=== PATIENT | female | born 1985 | race African-American/Black ===

== ENCOUNTER 2021-07-30 08:41 | Emergency (ER) | payer MEDICAID ==
[~2021-07-30] VITALS: Ht 160 cm; Wt 107.0 kg
[2021-07-30 09:02] LABS: Basophils # (auto) 0 10 ^3/uL (0-0.2); Basophils % (auto) 0.5 % (0.0-2.0); Eosinophils # (auto) 0 10 ^3/uL (0-0.8); Eosinophils % (auto) 1.1 % (0.0-7.0); Hematocrit 37.2 % (36.0-46.0); Hemoglobin 12.4 g/dL (12.2-16.2); Lymphocytes # (auto) 1.4 10 ^3/uL (0.4-5.4); Lymphocytes % (auto) 34.1 % (10.0-50.0); Mean Corpuscular Hemoglobin 28.6 pg (28.0-32.0); Mean Corpuscular Hgb Conc. 33.3 g/dL (32.0-36.0); Mean Corpuscular Volume 86.1 fL (80.0-100.0); Monocytes # (auto) 0.4 10 ^3/uL (0-1.3); Monocytes % (auto) 9.9 % (0.0-12.0); Neutrophils # (auto) 2.2 10 ^3/uL (1.6-8.6); Neutrophils % (auto) 54.4 % (37.0-80.0); Red Blood Cells 4.32 10^6/uL (4.0-5.20); Red Cell Distribution Width 14.4 % (11.8-14.3); White Blood Cell 4.1 10^3/uL (4.4-10.8)
[2021-07-30 09:19] LABS: Anion Gap 6 (5-15); BUN/Creatinine Ratio 13.2; Blood Urea Nitrogen 10 mg/dL (7-18); Calcium 8.5 mg/dL (8.5-10.1); Carbon Dioxide 23 mmol/L (21-32); Chloride 111 mmol/L (98-107); GFR African American 111 mL/min; GFR Non-African American 92 mL/min; Glucose 91 mg/dL (74-106); Potassium 3.8 mmol/L (3.5-5.1); Sodium 140 mmol/L (136-145)
[2021-07-30 10:02] VITALS: BP 135/86
== END 2021-07-30 10:32 | disposition home or self-care (01) ==
LOC: ER 08:41
DX: R07.89 Other chest pain (principal); F41.9 Anxiety disorder, unspecified
CPT/HCPCS: 36415; 80048; 84443; 84484; 85025; 93005

== ENCOUNTER 2023-09-26 07:53 | Emergency (ER) | payer MEDICAID ==
[~2023-09-26] VITALS: Ht 160 cm; Wt 115.3 kg
[2023-09-26] MEDS ORDERED: ONDANSETRON ODT 4 MG TAB PO ONE (08:30)
[2023-09-26 09:00] LABS: Basophils # (auto) 0 10 ^3/uL (0-0.2); Basophils % (auto) 0.4 % (0.0-2.0); Eosinophils # (auto) 0 10 ^3/uL (0-0.8); Eosinophils % (auto) 0.9 % (0.0-7.0); Hematocrit 38.6 % (36.0-46.0); Hemoglobin 12.8 g/dL (12.2-16.2); Lymphocytes # (auto) 1.9 10 ^3/uL (0.4-5.4); Lymphocytes % (auto) 32.5 % (10.0-50.0); Mean Corpuscular Hemoglobin 28.8 pg (28.0-32.0); Mean Corpuscular Volume 87.3 fL (80.0-100.0); Monocytes # (auto) 0.5 10 ^3/uL (0-1.3); Monocytes % (auto) 9.2 % (0.0-12.0); Neutrophils # (auto) 3.3 10 ^3/uL (1.6-8.6); Nucleated Red Blood Cells % 0.2 %; Red Blood Cells 4.43 10^6/uL (4.0-5.20); Red Cell Distribution Width 13.8 % (11.8-14.3); White Blood Cell 5.8 10^3/uL (4.4-10.8)
[2023-09-26 09:16] LABS: Alanine Aminotransferase 13 U/L (7-40); Alkaline Phosphatase 57 U/L (46-116); Anion Gap 5 (5-15); Aspartate Aminotransferase 13 U/L (13-40); BUN/Creatinine Ratio 8.6 (10.0-20.0); Bilirubin, Total 0.7 mg/dL (0.2-1.0); Blood Urea Nitrogen 7 mg/dL (9-23); Calcium 8.7 mg/dL (8.7-10.4); Carbon Dioxide 26 mmol/L (20-30); Chloride 106 mmol/L (98-107); Glucose 85 mg/dL (74-106); Lipase 23 U/L (12-53); Potassium 4.1 mmol/L (3.5-5.1); Sodium 137 mmol/L (136-145); Total Protein 6.9 g/dL (5.7-8.2)
[2023-09-26 09:40] VITALS: BP 116/71; PULSE 70; RESP 16; TEMP 97.9; O2SAT 96
[2023-09-26 09:50] LABS: Urine Bacteria NONE SEEN /hpf (None Seen); Urine Blood Negative /uL (Negative); Urine Clarity Clear (Clear); Urine Color Colorless (Yellow); Urine Protein, UAD Negative (Negative); Urine Specific Gravity 1.009 (1.001-1.035); Urine Urobilinogen Normal (Negative); Urine WBC 1 /hpf (0 - 5)
== END 2023-09-26 11:35 | disposition left against medical advice (07) ==
LOC: ER 07:53
DX: R10.12 Left upper quadrant pain (principal); R10.2 Pelvic and perineal pain; F41.9 Anxiety disorder, unspecified; Z98.890 Other specified postprocedural states
CPT/HCPCS: 36415; 80053; 81001; 83690; 84702; 85025; 99283; Q0162

== ENCOUNTER 2024-10-12 14:49 | Inpatient (IN) | payer MEDICAID ==
[~2024-10-12] VITALS: Ht 161.3 cm; Wt 118.5 kg
[2024-10-12 15:30] VITALS: PULSE 18; RESP 18; O2SAT 99
[2024-10-12] MEDS: SODIUM CHLORIDE 0.9% 1,000 ML IV ONE (15:45)
--- NOTE | 2024-10-12 16:01 | ED.PDOC ---
History of Present Illness HPI Comments 39F BIBA w/ prior Hx of an ectopic which may be associated to the c/c of ABD pain. EMS report on picking up the pt at a restaurant w/ the pt having ABD pain which feel like a "cramping sensation but worse," greatest in the upper abdomen, but diffusely painful. Pt reports on having an acute onset of ABD pain with the same sensation as her ectopic . Pt notes that she just ended her menstruation cycle yesterday. Denies chills, fever, V/D, SOB, CP or other associated symptoms, modifiers, or recent injuries at this time. Chief Complaint: Abdominal Pain Time Seen by MD: 15:30 Primary Care Provider: Alina Cat Notes: Nurses Notes, Adjunct Professor Of [employer] History Notes, Medications, Allergies Allergies: Coded Allergies: NO KNOWN ALLERGIES (Unverified , 07/30/21) Information Source: Patient, Emergency Med Personnel, Significant Other Mode of Arrival: EMS Severity: Moderate Timing: Minutes Duration: Since onset, Minutes Prehospital treatment: None Past Medical History Surgical History (Other): ? Left salpingectomy/oophorectomy [employer] History: Ectopic Family History Family History: Reviewed,noncontributory to illness, Unknown Social History Smoker: Unknown Alcohol: Unknown Drugs: Unknown Lives In: Home Constitutional: denies: chills, diaphoresis, fatigue, fever, malaise, sweats, weakness, others EENTM: denies: blurred vision, double vision, ear bleeding, ear discharge, ear drainage, ear pain, ear ringing, eye pain, eye redness, hearing loss, mouth pain, mouth swelling, nasal discharge, nose bleeding, nose congestion, nose pain, photophobia, tearing, throat pain, throat swelling, voice changes, others Respiratory: denies: cough, hemoptysis, orthopnea, SOB at rest, shortness of breath, SOB with excertion, stridor, wheezing, others Cardiovascular: denies: chest pain, dizzy spells, diaphoresis, Dyspnea on exertion, edema, irregular heart beat, left arm pain, lightheadedness, palpitations, PND, syncope, others Gastrointestinal: reports: abdominal pain; denies: abdomen distended, blood streaked bowels, constipated, diarrhea, dysphagia, difficulty swallowing, hematemesis, melena, nausea, poor appetite, poor fluid intake, rectal bleeding, rectal pain, vomiting, others Genitourinary: denies: abnormal vagina bleeding, burning, dyspareunia, dysuria, flank pain, frequency, hematuria, incontinence, pain, , vagina discharge, urgency, others Neurological: denies: dizziness, fainting, headache, left sided numbness, left sided weakness, numbness, paresthesia, pre-existing deficit, right sided numbness, right sided weakness, seizure, speech problems, tingling, tremors, weakness, others Musculoskeletal: denies: back pain, gout, joint pain, joint swelling, muscle pain, muscle stiffness, neck pain, others Integumetry: denies: bruises, change in color, change in hair/nails, dryness, laceration, lesions, lumps, rash, wounds, others Allergic/Immunocompromised: denies: Difficulty Healing, Frequent Infections, Hives, Itching, others Hematologic/Lymphatic: denies: anemia, blood clots, easy bleeding, easy bruising, swollen glands, others Endocrine: denies: excessive hunger, excessive sweating, excessive thirst, excessive urination, flushing, intolerance to cold, intolerance to heat, unexplained weight gain, unexplained weight loss, others Psychiatric: denies: anxiety, bipolar disorder, depression, hopeless, panic disorder, schizophrenia, sleepless, suicidal, others All Other Systems: Reviewed and Negative Physical Exam General Appearance: Moderate Distress, Obese HEENT: PERRL/EOMI Neck: Full Range of Motion, Normal Inspection Respiratory: Lungs Clear, No Accessory Muscle Use, No Respiratory Distress, Normal Breath Sounds Cardiovascular: No Edema, No JVD, Regular Rate/Rhythm Breast Exam: Deferred Gastrointestinal: Soft, Tenderness (Diffusely tender to percussion and palpation, greatest in the upper abdominal area. No rebound. Positive voluntary guarding.) Genitalia: Deferred Pelvic: Deferred Rectal: Deferred Extremities: Normal inspection, Normal range of motion, Non-tender, No pedal edema Neurologic: Alert (Oriented x4), Normal Affect, Normal Mood, Other (Moves all extremities. No gross focal deficit.) Cerebellar Function: NOT DONE Reflexes: NOT DONE Skin: Dry, Normal Color, Warm Lymphatic: NOT DONE Was a procedure done? Was a procedure done?: No Differential Dx Considerations may include: Gastroenteritis, gastritis, pancreatitis, bowel obstruction, , ectopic , ruptured ovarian cyst, diverticular disease, among others X-Ray, Labs, Meds, VS Vital Signs Date Time Temp Pulse Resp B/P (MAP) Pulse Ox O2 Delivery O2 Flow Rate FiO2 10/12/24 18:00 50 18 104/40 10/12/24 17:19 98.7 110 24 124/77 (93) 99 10/12/24 16:44 57 16 112/61 10/12/24 16:18 72 16 112/61 10/12/24 16:00 62 18 112/61 (78) 99 10/12/24 15:30 18 18 99 Room Air* 0 21 10/12/24 15:30 62 14 106/48 (67) 99 Lab Test 10/12/24 15:41 Range/Units White Blood Count 4.4 4.4-10.8 10^3/uL Red Blood Count 4.23 4.0-5.20 10^6/uL Hemoglobin 12.4 12.2-16.2 g/dL Hematocrit 37.0 36.0-46.0 % Mean Corpuscular Volume 87.7 80.0-100.0 fL Mean Corpuscular Hemoglobin 29.3 28.0-32.0 pg Mean Corpuscular Hemoglobin Concent 33.4 32.0-36.0 g/dL Red Cell Distribution Width 13.9 11.8-14.3 % Platelet Count 271 140-450 10^3/uL Mean Platelet Volume 7.7 6.9-10.8 fL Neutrophils (%) (Auto) 63.9 37.0-80.0 % Lymphocytes (%) (Auto) 26.9 10.0-50.0 % Monocytes (%) (Auto) 8.0 0.0-12.0 % Eosinophils (%) (Auto) 0.8 0.0-7.0 % Basophils (%) (Auto) 0.4 0.0-2.0 % Neutrophils # (Auto) 2.8 1.6-8.6 10 ^3/uL Lymphocytes # (Auto) 1.2 0.4-5.4 10 ^3/uL Monocytes # (Auto) 0.4 0-1.3 10 ^3/uL Eosinophils # (Auto) 0 0-0.8 10 ^3/uL Basophils # (Auto) 0 0-0.2 10 ^3/uL Nucleated Red Blood Cells 0.0 % Sodium Level 141 136-145 mmol/L Potassium Level 3.9 3.5-5.1 mmol/L Chloride Level 107 98-107 mmol/L Carbon Dioxide Level 26 20-31 mmol/L Anion Gap 8 5-15 Blood Urea Nitrogen 9 9-23 mg/dL Creatinine 0.88 0.550-1.02 mg/dL Glomerular Filtration Rate Calc 86 >90 mL/min BUN/Creatinine Ratio 10.2 10.0-20.0 Serum Glucose 82 74-106 mg/dL Calcium Level 9.2 8.7-10.4 mg/dL Total Bilirubin 0.4 0.2-1.0 mg/dL Aspartate Amino Transferase (AST) 26 13-40 U/L Alanine Aminotransferase (ALT) 18 7-40 U/L Alkaline Phosphatase 62 46-116 U/L Total Protein 6.5 5.7-8.2 g/dL Albumin 3.7 3.2-4.8 g/dL Lipase 158 H 12-53 U/L Beta HCG, Quantitative 1.7 1.5-4.2 mIU/mL Current Medications Medications (Trade) Dose Ordered Sig/Ana Luisa Route Start Time Stop Time Status Last Admin Morphine Sulfate 4 mg ONCE ONCE IV 10/12/24 15:45 10/12/24 15:46 DC 10/12/24 16:18 Ondansetron HCl (Zofran) 4 mg ONCE ONCE IV 10/12/24 15:45 10/12/24 15:46 DC 10/12/24 16:17 Sodium Chloride 1,000 ml @ 1,000 mls/hr Q1H ONCE IV 10/12/24 15:45 10/12/24 16:44 DC 10/12/24 15:45 Morphine Sulfate 4 mg ONCE ONCE IV 10/12/24 17:45 10/12/24 17:46 DC 10/12/24 18:00 PROCEDURE(s): PELUS - PELVIC REASON: pelvic pain, h/o ruptured ectopic ORDER NUMBER(s): [id number], ACCESSION NUMBER(s): [id number] INDICATION: pelvic pain, h/o ruptured ectopic TECHNIQUE: Multiple real-time grayscale transabdominal sonographic images along with color and duplex Doppler of the uterus and ovaries were obtained. COMPARISON: None FINDINGS: The uterus measures 8.6 x 2.3 x 3.1 cm cm. The endometrial stripe measures 0.31 cm. The right ovary measures 2.6 x 2.3 x 1.5 cm. There is an anechoic mass in the right ovary measuring 0.9 x 0.9 x 0.8 cm most likely a small follicle. The left ovary not visualized Subsequent color and duplex Doppler interrogation of the ovaries demonstrated symmetric vascular flow to both ovaries, though this does not exclude the possibility of torsion due to the dual blood supply. IMPRESSION: 1. Uterus is unremarkable. 2. Small follicle right ovary. 3. Left ovary not visualized EDURE(s): ABPL - CT AB PEL WO CON-NO ORAL OR IV REASON: diffuse abd pain ORDER NUMBER(s): [id number], ACCESSION NUMBER(s): [id number] Exam: CT CT AB PEL WO CON-NO ORAL OR IV History: diffuse abd pain Comparison Study: None available at time of dictation. TECHNIQUE: Multidetector CT of the abdomen was performed from lung bases to pubic symphysis. Imaging was performed without IV contrast. Axial, coronal and sagittal multiplanar reformats were obtained from the axial data set by the technologist. Radiation Dose Information: CT Dose: CTDI volume is 22.66 mGy. Dose-length product is 1156.64 mGy*cm FINDINGS: Evaluation of solid organs is limited due to lack of intravenous contrast use. Findings: Lung Bases: No acute or significant lung base finding. Normal heart size. No pleural or pericardial effusion. Liver: The liver is normal in size. No focal lesions. Gallbladder and Biliary Tree: No calcified gallstones Spleen: Unremarkable Pancreas: The pancreas is grossly normal in appearance. Adrenal Glands: Unremarkable Kidneys: Kidneys are grossly normal without calculi or hydronephrosis. Bladder: Grossly unremarkable for degree of distention. Bowel: The stomach is grossly normal in appearance. Small bowel and colon are normal in caliber and distribution. The appendix is not visualized; however, no secondary findings of acute appendicitis identified. Ascites: Absent Lymphadenopathy: No mesenteric, retroperitoneal or periportal lymphadenopathy. Abdominal Wall and Mesentery: Unremarkable. Vasculature: The visualized abdominal aorta is normal in size and caliber. Evaluation of abdominal and pelvic vessels is limited due to lack of intravenous contrast. Pelvic Organs: Unremarkable Musculoskeletal: No aggressive focal bony lesions, acute fractures or dislocation. Soft tissues: Unremarkable IMPRESSION: 1. No calcified gallstones. 2. No nephrolithiasis or hydronephrosis. 3. No findings of bowel obstruction. Radiation optimization: All CT scans at this facility use at least one of these dose optimization techniques: automated exposure control mA and/or kV adjustment per patient size (includes targeted exams where dose is matched to clinical indication) or iterative reconstruction. X-Ray, Labs, Meds, VS Comment 39-year-old female with a history of previous ectopic status post left oophorectomy/salpingectomy complaining of abdominal pain and nausea Vitals remarkable for respiratory rate 18, BP 106/48 Exam remarkable for diffuse abdominal tenderness, greatest in the upper abdomen Rhythm strip independently interpreted by me: Sinus rhythm, rate 62, no ectopy. Pelvic ultrasound: IMPRESSION: 1. Uterus is unremarkable. 2. Small follicle right ovary. 3. Left ovary not visualized CT abdomen and pelvis: IMPRESSION: 1. No calcified gallstones. 2. No nephrolithiasis or hydronephrosis. 3. No findings of bowel obstruction. CBC, CMP, hCG unremarkable Lipase 158 Patient treated with the following in the ED: 1 L 0.9 normal saline IV bolus, morphine 4 mg IV x2, Zofran 4 mg IV On re-evaluation, patient states pain has somewhat improved, but is still present. Vitals are stable. Plan is to admit the patient for pain control and GI evaluation. Time of 1ST Reevaluation: 16:00 Reevaluation 1ST: Unchanged Time of 2ND Reevaluation: 18:25 Reevaluation 2ND: Improved Patient Education/Counseling: Diagnosis, Treatment, Prognosis Family Education/Counseling: Diagnosis, Treatment, Prognosis Additional Information The following tests were ordered, and results were reviewed by me: Lab, PHA, US, CT Additional information was gathered from interviewing the following independent historians: Fam, EMT) I reviewed and agreed with the following test results read by other providers: CT, US) I discussed treatments and results with medical personnel and: (Consultants, Fam, etc) Departure 1 Departure Time of Disposition: 17:51 Impression: Primary Impression: Acute pancreatitis Qualified Codes: K85.90 - Acute pancreatitis without necrosis or infection, unspecified Disposition: 09 ADMITTED INPATIENT Admit to: Med Surg Condition: Fair Critical Care Note Critical Care Time?: No Stability Stability form required: No Heart Score Heart Score: Heart Score Response (Comments) Value History N/A 0 EKG N/A 0 Age N/A 0 Risk Factors N/A 0 Troponin N/A 0 Total 0 I personally scribed for NAT BANUELOS MD ([email or web address]) on 10/12/24 at 16:01. Electronically submitted by Rony Solorio ([email or web address]). NAT BANUELOS MD Oct 12, 2024 16:01
[2024-10-12 16:14] LABS: Basophils # (auto) 0 10 ^3/uL (0-0.2); Basophils % (auto) 0.4 % (0.0-2.0); Eosinophils # (auto) 0 10 ^3/uL (0-0.8); Eosinophils % (auto) 0.8 % (0.0-7.0); Hemoglobin 12.4 g/dL (12.2-16.2); Lymphocytes # (auto) 1.2 10 ^3/uL (0.4-5.4); Lymphocytes % (auto) 26.9 % (10.0-50.0); Mean Corpuscular Hemoglobin 29.3 pg (28.0-32.0); Mean Corpuscular Hgb Conc. 33.4 g/dL (32.0-36.0); Mean Corpuscular Volume 87.7 fL (80.0-100.0); Monocytes # (auto) 0.4 10 ^3/uL (0-1.3); Neutrophils # (auto) 2.8 10 ^3/uL (1.6-8.6); Neutrophils % (auto) 63.9 % (37.0-80.0); Platelet Count (auto) 271 10^3/uL (140-450); Red Blood Cells 4.23 10^6/uL (4.0-5.20); Red Cell Distribution Width 13.9 % (11.8-14.3); White Blood Cell 4.4 10^3/uL (4.4-10.8)
[2024-10-12] MEDS: ONDANSETRON HCL 4 MG/2 ML VIAL IV ONE (16:17)
[2024-10-12] MEDS: MORPHINE SULFATE 4 MG/ML SYR/VIAL IV ONE ×2 (16:18→18:00)
[2024-10-12 16:22] LABS: Alanine Aminotransferase 18 U/L (7-40); Albumin 3.7 g/dL (3.2-4.8); Alkaline Phosphatase 62 U/L (46-116); Anion Gap 8 (5-15); Aspartate Aminotransferase 26 U/L (13-40); BUN/Creatinine Ratio 10.2 (10.0-20.0); Bilirubin, Total 0.4 mg/dL (0.2-1.0); Blood Urea Nitrogen 9 mg/dL (9-23); Calcium 9.2 mg/dL (8.7-10.4); Carbon Dioxide 26 mmol/L (20-31); Glucose 82 mg/dL (74-106); Potassium 3.9 mmol/L (3.5-5.1); Sodium 141 mmol/L (136-145); Total Protein 6.5 g/dL (5.7-8.2)
[2024-10-12 16:27] LABS: Chloride 107 mmol/L (98-107)
[2024-10-12 16:48] LABS: Lipase 158 U/L (12-53)
--- NOTE | 2024-10-12 17:36 | DVH ---
INDICATION: pelvic pain, h/o ruptured ectopic TECHNIQUE: Multiple real-time grayscale transabdominal sonographic images along with color and duplex Doppler of the uterus and ovaries were obtained. COMPARISON: None FINDINGS: The uterus measures 8.6 x 2.3 x 3.1 cm cm. The endometrial stripe measures 0.31 cm. The right ovary measures 2.6 x 2.3 x 1.5 cm. There is an anechoic mass in the right ovary measuring 0.9 x 0.9 x 0.8 cm most likely a small follicle. The left ovary not visualized Subsequent color and duplex Doppler interrogation of the ovaries demonstrated symmetric vascular flow to both ovaries, though this does not exclude the possibility of torsion due to the dual blood suppl y. IMPRESSION: 1. Uterus is unremarkable. 2. Small follicle right ovary. 3. Left ovary not visualized
--- NOTE | 2024-10-12 18:04 | DVH ---
Exam: CT CT AB PEL WO CON-NO ORAL OR IV History: diffuse abd pain Comparison Study: None available at time of dictation. TECHNIQUE: Multidetector CT of the abdomen was performed from lung bases to pubic symphysis. Imaging was performed without IV contrast. Axial, coronal and sagittal multiplanar reformats were obtained fr om the axial data set by the technologist. Radiation Dose Information: CT Dose: CTDI volume is 22.66 mGy. Dose-length product is 1156.64 mGy*cm FINDINGS: Evaluation of solid organs is limited due to lack of intravenous contrast use. Findings: Lung Bases: No acute or significant lung base finding. Normal heart size. No pleural or pericardial effusion. Liver: The liver is normal in size. No focal lesions. Gallbladder and Biliary Tree: No calcified gallstones Spleen: Unremarkable Pancreas: The pancreas is grossly normal in appearance. Adrenal Glands: Unremarkable Kidneys: Kidneys are grossly normal without calculi or hydronephrosis. Bladder: Grossly unremarkable for degree of distention. Bowel: The stomach is grossly normal in appearance. Small bowel and colon are normal in caliber and d istribution. The appendix is not visualized; however, no secondary findings of acute appendicitis id entified. Ascites: Absent Lymphadenopathy: No mesenteric, retroperitoneal or periportal lymphadenopathy. Abdominal Wall and Mesentery: Unremarkable. Vasculature: The visualized abdominal aorta is normal in size and caliber. Evaluation of abdominal a nd pelvic vessels is limited due to lack of intravenous contrast. Pelvic Organs: Unremarkable Musculoskeletal: No aggressive focal bony lesions, acute fractures or dislocation. Soft tissues: Unremarkable IMPRESSION: 1. No calcified gallstones. 2. No nephrolithiasis or hydronephrosis. 3. No findings of bowel obstruction. Radiation optimization: All CT scans at this facility use at least one of these dose optimization vitor hniques: automated exposure control mA and/or kV adjustment per patient size (includes targeted exam s where dose is matched to clinical indication) or iterative reconstruction.
[2024-10-12 19:30] VITALS: PULSE 75; RESP 16; O2SAT 99
[2024-10-12] MEDS ORDERED: ACETAMINOPHEN 325 MG TAB PO PRN (19:30)
[2024-10-12] MEDS ORDERED: ONDANSETRON HCL 4 MG/2 ML VIAL IV PRN (19:30)
[2024-10-12] MEDS: LACTATED RINGER'S 1,000 ML IV SCH (20:06)
[2024-10-12] MEDS ORDERED: NITROGLYCERIN 0.4 MG SL TAB SL PRN (21:45)
[2024-10-12] MEDS ORDERED: MORPHINE SULFATE INJ 2 MG/ml SYRG IV PRN (21:45)
--- NOTE | 2024-10-12 21:56 | DVHHP2 ---
History of Present Illness Reason for Visit: Acute pancreatitis History of Present Illness The patient is a 39-year-old female with past medical history of atopic who presented to [facility] ED with complaint of acute abdominal pain. Patient reports she was picked up at restaurant having abdominal pain cramping sensation in nature greater in the upper abdominal region, rating 9/10 numeric scale, getting worse that prompted this visit. Patient states that she just ended her menstruation cycle yesterday. Patient was seen evaluated in the ED, laboratory data shows WBC 4.4, platelets 271, sodium 141, potassium 3.9, BUN 9, creatinine 0.88, glucose 82, lipase 158. Abdomen/pelvis CT shows no evidence of acute abdominal/pelvis abnormality. Patient was given IV morphine sulfate 4 mg, given IV fluid normal saline, please see medication orders section in the computer. On my assessment, patient denied chest pain, no dizziness, no headache, no diaphoresis, no shortness o breath, no diarrhea, no nausea, no vomiting, no fever, no chills. Patient was admitted for further evaluation and medical management. Past Medical History Ectopic Past Surgical History Left salpingectomy/oophorectomy Family History Reviewed, noncontributory to the management of this case. Past Social History The patient lives at home, denies smoking, alcohol or illicit drugs abuse. Review of Systems Constitutional: No: Fever, Chills, Sweats, Weakness, Malaise, Other Eyes: No: Pain, Vision change, Conjunctivae inflammation, Eyelid inflammation, Other, Redness ENT: No: Ear pain, Ear discharge, Nose pain, Nose discharge, Nose congestion, Mouth pain, Mouth swelling, Throat pain, Throat swelling, Other Respiratory: No: Cough, Dry, Shortness of breath, SOB with excertion, Wheezing, Hemoptysis, Pleuritic Pain, Sputum, Wheezing, Other Cardiovascular: No: Chest Pain, Palpitations, Orthopnea, Paroxysmal Noc. Dyspnea, Edema, Lt Headedness, Other Gastrointestinal: Abdominal Pain; No: Nausea, Vomiting, Diarrhea, Constipation, Melena, Hematochezia, Other Genitourinary: No Dysuria, No Frequency, No Incontinence, No Hematuria, No Retention, No Other Musculoskeletal: No: other, neck pain, shoulder pain, arm pain, back pain, hand pain, leg pain, foot pain Skin: No: Rash, Lesions, Jaundice, Bruising, Other Neurological: No: Weakness, Numbness, Incoordination, Change in speech, Confusion, Seizures, Other Allergies: Coded Allergies: NO KNOWN ALLERGIES (Unverified , 07/30/21) Medications Current Medications Medications Dose Ordered Sig/Ana Luisa Route Start Time Stop Time Status Last Admin Dose Admin Lactated Ringer's 1,000 ml @ 100 mls/hr Q10H IV 10/12/24 19:30 10/12/24 20:06 100 MLS/HR Acetaminophen/ Hydrocodone Bitart 1 tab Q4HP PRN PO 10/12/24 19:30 Ondansetron HCl 4 mg Q4HP PRN IV 10/12/24 19:30 Docusate Sodium 100 mg BIDPRN PRN PO 10/12/24 19:30 Acetaminophen 650 mg Q6HP PRN PO 10/12/24 19:30 Morphine Sulfate 2 mg Q4HPRN PRN IV 10/12/24 19:30 Exam Vital Signs Vital Signs Date Time Temp Pulse Resp B/P (MAP) Pulse Ox O2 Delivery O2 Flow Rate FiO2 10/12/24 20:00 62 10/12/24 18:26 18 104/40 10/12/24 18:00 97 10/12/24 17:19 98.7 10/12/24 15:30 Room Air* 0 21 General Appearance: Alert, Oriented X3, Cooperative, No acute distress HEENT: Atraumatic, PERRLA, EOMI, Mucous membr. moist/pink Respiratory: Clear to auscultation, Normal air movement Cardiovascular: Regular rate, Normal S1, Normal S2, No murmurs Abdominal: Normal bowel sounds, Soft, No hepatospenomegaly, No masses, Other (Reports tenderness) Extremities: No clubbing, No cyanosis, No edema, Normal pulses, No tenderness/swelling Skin: No rashes, No breakdown, No significant lesion Neuro: Normal gait, Normal speech, Strength at 5/5 X4 ext, Normal tone, Sensation intact, Cranial nerves 3-12 NL, Reflexes 2+ Psych/Mental Status: Mental status NL, Mood NL Labs/Xrays Labs Test 10/12/24 15:41 Range/Units White Blood Count 4.4 4.4-10.8 10^3/uL Red Blood Count 4.23 4.0-5.20 10^6/uL Hemoglobin 12.4 12.2-16.2 g/dL Hematocrit 37.0 36.0-46.0 % Mean Corpuscular Volume 87.7 80.0-100.0 fL Mean Corpuscular Hemoglobin 29.3 28.0-32.0 pg Mean Corpuscular Hemoglobin Concent 33.4 32.0-36.0 g/dL Red Cell Distribution Width 13.9 11.8-14.3 % Platelet Count 271 140-450 10^3/uL Mean Platelet Volume 7.7 6.9-10.8 fL Neutrophils (%) (Auto) 63.9 37.0-80.0 % Lymphocytes (%) (Auto) 26.9 10.0-50.0 % Monocytes (%) (Auto) 8.0 0.0-12.0 % Eosinophils (%) (Auto) 0.8 0.0-7.0 % Basophils (%) (Auto) 0.4 0.0-2.0 % Neutrophils # (Auto) 2.8 1.6-8.6 10 ^3/uL Lymphocytes # (Auto) 1.2 0.4-5.4 10 ^3/uL Monocytes # (Auto) 0.4 0-1.3 10 ^3/uL Eosinophils # (Auto) 0 0-0.8 10 ^3/uL Basophils # (Auto) 0 0-0.2 10 ^3/uL Nucleated Red Blood Cells 0.0 % Sodium Level 141 136-145 mmol/L Potassium Level 3.9 3.5-5.1 mmol/L Chloride Level 107 98-107 mmol/L Carbon Dioxide Level 26 20-31 mmol/L Anion Gap 8 5-15 Blood Urea Nitrogen 9 9-23 mg/dL Creatinine 0.88 0.550-1.02 mg/dL Glomerular Filtration Rate Calc 86 >90 mL/min BUN/Creatinine Ratio 10.2 10.0-20.0 Serum Glucose 82 74-106 mg/dL Calcium Level 9.2 8.7-10.4 mg/dL Total Bilirubin 0.4 0.2-1.0 mg/dL Aspartate Amino Transferase (AST) 26 13-40 U/L Alanine Aminotransferase (ALT) 18 7-40 U/L Alkaline Phosphatase 62 46-116 U/L Total Protein 6.5 5.7-8.2 g/dL Albumin 3.7 3.2-4.8 g/dL Lipase 158 H 12-53 U/L Beta HCG, Quantitative 1.7 1.5-4.2 mIU/mL PATIENT: TEENA SMITH ACCT: [id number] UNIT: [id number] : 1985 LOC: ER ROOM / BED: / AGE / SEX: 39 / F ADM STATUS: REG ER SERVICE 1538 ORDERING PHYSICIAN: NAT BANUELOS MD PROCEDURE(s): ABPL - CT AB PEL WO CON-NO ORAL OR IV REASON: diffuse abd pain ORDER NUMBER(s): [id number], ACCESSION NUMBER(s): [id number] Exam: CT CT AB PEL WO CON-NO ORAL OR IV History: diffuse abd pain Comparison Study: None available at time of dictation. TECHNIQUE: Multidetector CT of the abdomen was performed from lung bases to pubic symphysis. Imaging was performed without IV contrast. Axial, coronal and sagittal multiplanar reformats were obtained from the axial data set by the technologist. Radiation Dose Information: CT Dose: CTDI volume is 22.66 mGy. Dose-length product is 1156.64 mGy*cm FINDINGS: Evaluation of solid organs is limited due to lack of intravenous contrast use. Findings: Lung Bases: No acute or significant lung base finding. Normal heart size. No p leural or pericardial effusion. Liver: The liver is normal in size. No focal lesions. Gallbladder and Biliary Tree: No calcified gallstones Spleen: Unremarkable Pancreas: The pancreas is grossly normal in appearance. Adrenal Glands: Unremarkable Kidneys: Kidneys are grossly normal without calculi or hydronephrosis. Bladder: Grossly unremarkable for degree of distention. Bowel: The stomach is grossly normal in appearance. Small bowel and colon are normal in caliber and distribution. The appendix is not visualized; however, no secondary findings of acute appendicitis identified. Ascites: Absent Lymphadenopathy: No mesenteric, retroperitoneal or periportal lymphadenopathy. Abdominal Wall and Mesentery: Unremarkable. Vasculature: The visualized abdominal aorta is normal in size and caliber. Evaluation of abdominal and pelvic vessels is limited due to lack of intravenous contrast. Pelvic Organs: Unremarkable Musculoskeletal: No aggressive focal bony lesions, acute fractures or dislocation. Soft tissues: Unremarkable IMPRESSION: 1. No calcified gallstones. 2. No nephrolithiasis or hydronephrosis. 3. No findings of bowel obstruction. ORDERING PHYSICIAN: NAT BANUELOS MD PROCEDURE(s): PELUS - PELVIC REASON: pelvic pain, h/o ruptured ectopic ORDER NUMBER(s): [id number], ACCESSION NUMBER(s): [id number] INDICATION: pelvic pain, h/o ruptured ectopic TECHNIQUE: Multiple real-time grayscale transabdominal sonographic images along with color and duplex Doppler of the uterus and ovaries were obtained. COMPARISON: None FINDINGS: The uterus measures 8.6 x 2.3 x 3.1 cm cm. The endometrial stripe measures 0.31 cm. The right ovary measures 2.6 x 2.3 x 1.5 cm. There is an anechoic mass in the right ovary measuring 0.9 x 0.9 x 0.8 cm most likely a small follicle. The left ovary not visualized Subsequent color and duplex Doppler interrogation of the ovaries demonstrated symmetric vascular flow to both ovaries, though this does not exclude the possib ility of torsion due to the dual blood supply. IMPRESSION: 1. Uterus is unremarkable. 2. Small follicle right ovary. 3. Left ovary not visualized Assessment/Plan Assessment/Plan Acute pancreatitis Acute abdominal pain Acute pancreatitis without necrosis or infection, unspecified Plan 1. Admit to MedSurg unit 2. Breathing treatment 3. Pain control management 4. Management of fluids and electrolytes 5. Consultation for hospitalist 6. Diagnostic tests abdomen/pelvis CT 7. DVT prophylaxis-on SCDs 8. Repeat labs CBC, CMP in a.m. 9. Continue with current medical management 10. Treatment plan discussed with patient and RN. Patient verbalized understanding. Plan discussed with: Patient, Other (RN) My Orders Orders - EARNEST VIRAMONTES DNP Procedure Category Date Status Time Lactated Ringer's PHA 10/12/24 In Process 19:30 Allergies GLENN 10/12/24 In Process 19:17 Code Status CODE 10/12/24 Transmitted 19:17 Oxygen Per Hour RT 10/12/24 Transmitted 19:17 Hydrocodone-Acet PHA 10/12/24 In Process 5/325mg Tab ([place] 19:30 Ondansetron Hcl PHA 10/12/24 In Process (Zofran) 19:30 Docusate Sodium PHA 10/12/24 In Process Capsule (Colace 19:30 Complete Blood Count LAB 10/13/24 Verified 04:00 Comprehensive LAB 10/13/24 Verified Metabolic Panel 04:00 Condition: Serious GLENN 10/12/24 In Process 19:17 Acetaminophen Tablet PHA 10/12/24 In Process (Tylenol Tablet) 19:30 Clear Liq Diet DIET 10/13/24 Transmitted Breakfast Bedrest With Bathroom GLENN 10/12/24 In Process Privileg 19:17 Morphine Sulfate PHA 10/12/24 In Process Injection 19:30 Sequential GLENN 10/12/24 In Process Compression Device * Gi [employer] Inspector CONS 10/12/24 Transmitted 19:21 Admit ADMIT 10/12/24 Verified 21:44 Nitroglycerin [facility] 10/12/24 Verified Sublingual (Ntrostat 21:45 Morphine Sulfate PHA 10/12/24 Verified Injection 21:45 Notify Md Of Changes [facility] 10/12/24 Verified From Base 21:44 Emergency Dysrhythmia [facility] 10/12/24 Verified Protocol 21:44 Oxygen By Nasal RT 10/12/24 Verified Cannula 21:44 Problem List: (1) Acute pancreatitis (2) Acute abdominal pain (3) Acute pancreatitis without necrosis or infection, unspecified Date of Service: Oct 12, 2024 Billing Provider: EARNEST VIRAMONTES DNP Common Visit Codes: [id number] INP/OBS CARE (HIGH) EARNEST VIRAMONTES DNP Oct 12, 2024 21:56
[2024-10-12] MEDS: HYDROcodone-ACET 5/325MG TAB PO PRN (22:19)
[2024-10-12] MEDS: D5W/SOD CHL 0.45% 1,000 ML IV SCH (23:27)
[2024-10-13] VITALS (7 sets, daily range): BP systolic 103–118; BP diastolic 52–61; PULSE 54–63; RESP 16–19; TEMP 97.6–97.9; O2SAT 97–100
[2024-10-13 00:04] LABS: Urine Bacteria FEW /hpf (None Seen); Urine Blood Negative /uL (Negative); Urine Clarity Turbid (Clear); Urine Color Light-Yellow (Yellow); Urine Mucus FEW (None Seen); Urine Protein, UAD Negative (Negative); Urine Specific Gravity 1.015 (1.001-1.035); Urine Urobilinogen Normal (Negative); Urine WBC 3 /hpf (0 - 5)
[2024-10-13] MEDS: MORPHINE SULFATE INJ 2 MG/ml SYRG IV PRN (01:07)
[2024-10-13] MEDS ORDERED: LORA-1121 PO (03:25)
[2024-10-13] MEDS ORDERED: DIPH25CA66 PO (03:25)
[2024-10-13 05:53] LABS: Basophils # (auto) 0 10 ^3/uL (0-0.2); Basophils % (auto) 0.3 % (0.0-2.0); Eosinophils # (auto) 0 10 ^3/uL (0-0.8); Eosinophils % (auto) 0.7 % (0.0-7.0); Hematocrit 34.8 % (36.0-46.0); Hemoglobin 11.8 g/dL (12.2-16.2); Lymphocytes # (auto) 1.4 10 ^3/uL (0.4-5.4); Lymphocytes % (auto) 28.8 % (10.0-50.0); Mean Corpuscular Hemoglobin 29.7 pg (28.0-32.0); Mean Corpuscular Hgb Conc. 33.9 g/dL (32.0-36.0); Mean Corpuscular Volume 87.6 fL (80.0-100.0); Monocytes # (auto) 0.5 10 ^3/uL (0-1.3); Monocytes % (auto) 9.7 % (0.0-12.0); Neutrophils % (auto) 60.5 % (37.0-80.0); Nucleated Red Blood Cells % 0.1 %; Platelet Count (auto) 249 10^3/uL (140-450); Red Blood Cells 3.97 10^6/uL (4.0-5.20); Red Cell Distribution Width 13.7 % (11.8-14.3); White Blood Cell 4.9 10^3/uL (4.4-10.8)
[2024-10-13 06:15] LABS: Albumin 3.4 g/dL (3.2-4.8); Alkaline Phosphatase 71 U/L (46-116); Anion Gap 5 (5-15); Bilirubin, Total 0.6 mg/dL (0.2-1.0); Calcium 8.9 mg/dL (8.7-10.4); Carbon Dioxide 28 mmol/L (20-31); Chloride 107 mmol/L (98-107); Glucose 99 mg/dL (74-106); Potassium 3.6 mmol/L (3.5-5.1); Sodium 140 mmol/L (136-145)
[2024-10-13 06:18] LABS: Alanine Aminotransferase 121 U/L (7-40); Aspartate Aminotransferase 214 U/L (13-40); Blood Urea Nitrogen 6 mg/dL (9-23)
--- NOTE | 2024-10-13 13:09 | DVHPN2 ---
Subjective The patient is seen and examined at bedside. The patient stated that she unable to tolerate clear liquid diet. She just tried the broth and feel like she wanted to vomiting. Reviewed: Care Plan, H&P, Labs, Medications, Previous Orders, Radiology Changes from previous H/P or p: No Changes Eyes: No Pain, No Vision change, No Conjunctivae inflammation, No Eyelid inflammation, No Other, No Redness ENT: No Ear pain, No Ear discharge, No Nose pain, No Nose discharge, No Nose congestion, No Mouth pain, No Mouth swelling, No Throat pain, No Throat swelling, No Other Cardiovascular: No Chest Pain, No Palpitations, No Orthopnea, No Paroxysmal Noc. Dyspnea, No Edema, No Lt Headedness, No Other Respiratory: No Cough, No Dry, No Shortness of breath, No SOB with excertion, No Wheezing, No Hemoptysis, No Pleuritic Pain, No Sputum, No Other Gastrointestinal: Abdominal Pain Genitourinary: No Dysuria, No Frequency, No Incontinence, No Hematuria, No Retention, No Other Musculoskeletal: No other, No neck pain, No shoulder pain, No arm pain, No back pain, No hand pain, No leg pain, No foot pain Skin: No Rash, No Lesions, No Jaundice, No Bruising, No Other Objective Vitals Vital Signs Date Time Temp Pulse Resp B/P (MAP) Pulse Ox O2 Delivery O2 Flow Rate FiO2 10/13/24 10:09 72 22 110/68 10/13/24 08:00 100 Room Air* 0 21 10/13/24 05:00 97.7 97.7 Intake/Output Intake and Output 10/13/24 07:00 Intake Total 300 ml Balance 300 ml Intake IV Total 300 ml # Voids 1 General Appearance: Alert, Oriented X3, Cooperative, No acute distress HEENT: Atraumatic, PERRLA, EOMI, Mucous membr. moist/pink Neck: Supple Lungs: Clear to auscultation, Normal air movement Cardiovascular: Regular rate, Normal S1, Normal S2, No murmurs, Gallops, Rubs Abdomen: Normal bowel sounds, Soft, No tenderness Neuro: Cranial nerves 3-12 NL Psych/Mental Status: Mental status NL Medications Current Medications Medications Dose Ordered Sig/Ana Luisa Route Start Time Stop Time Status Last Admin Dose Admin Acetaminophen/ Hydrocodone Bitart 1 tab Q4HP PRN PO 10/12/24 19:30 10/13/24 06:57 1 TAB Ondansetron HCl 4 mg Q4HP PRN IV 10/12/24 19:30 Docusate Sodium 100 mg BIDPRN PRN PO 10/12/24 19:30 Acetaminophen 650 mg Q6HP PRN PO 10/12/24 19:30 Morphine Sulfate 2 mg Q4HPRN PRN IV 10/12/24 19:30 10/13/24 10:09 2 MG Nitroglycerin 0.4 mg Q5MINP PRN SL 10/12/24 21:45 Morphine Sulfate 2 mg Q30M PRN IV 10/12/24 21:45 Dextrose/Sodium Chloride 1,000 ml @ 100 mls/hr Q10H IV 10/12/24 23:30 10/13/24 09:30 100 MLS/HR Laboratory Results Laboratory Tests 10/13/24 04:30 Chemistry Test 10/12/24 15:41 10/13/24 04:30 Albumin 3.7 g/dL (3.2-4.8) 3.4 g/dL (3.2-4.8) Calcium Level 9.2 mg/dL (8.7-10.4) 8.9 mg/dL (8.7-10.4) Total Protein 6.5 g/dL (5.7-8.2) 6.0 g/dL (5.7-8.2) Lipid panel Test 10/12/24 15:41 Lipase 158 U/L (12-53) H LFT Test 10/12/24 15:41 10/13/24 04:30 Alanine Aminotransferase (ALT) 18 U/L (7-40) 121 U/L (7-40) H Alkaline Phosphatase 62 U/L (46-116) 71 U/L (46-116) Aspartate Amino Transferase (AST) 26 U/L (13-40) 214 U/L (13-40) H Total Bilirubin 0.4 mg/dL (0.2-1.0) 0.6 mg/dL (0.2-1.0) Urinalysis Test 10/12/24 23:00 Urine Color Light-yellow (Yellow) Urine Clarity Turbid (Clear) H Urine pH 6.0 (5.0-9.0) Urine Specific [place] 1.015 (1.001-1.035) Urine Protein Negative (Negative) Urine Ketones Negative (Negative) Urine Blood Negative /uL (Negative) Urine Nitrite Negative (Negative) Urine Bilirubin Negative (Negative) Urine Urobilinogen Normal mg/dL (Negative) Urine Leukocyte Esterase Negative /uL (Negative) Urine RBC 1 /hpf (0 - 4) Urine WBC 3 /hpf (0 - 5) Urine Squamous Epithelial Cells Few /hpf (<5) Urine Bacteria Few /hpf (None Seen) H Urine Mucus Few (None Seen) Urine Glucose Normal mg/dL (Normal) Labs and/or images reviewed: Labs reviewed by me Assessment/Plan Assessment/Plan Acute pancreatitis Intractable nausea or vomiting Plan: Continuing current management. Continuing with IV fluid. Continuing with IV pain medication and Loris for pain control. Discussed with the patient regarding to clear liquid diet. We will stop food today and keep NPO until patient can tolerate food. Continuing Zofran p.r.n. for nausea or vomiting Plan discussed with: Patient Date of Service: Oct 13, 2024 Billing Provider: VIJI GOSS MD Common Visit Codes: [id number] INP/OBS CARE(HIGH) VIJI GOSS MD Oct 13, 2024 13:09
--- NOTE | 2024-10-13 22:11 | DVHINCON2 ---
Date of service: Oct 13, 2024 Referring Physician Nikolas Terrazas Reason for Consultation Possible mild pancreatitis History of Present Illness The patient is a 39-year-old female with past medical history of ectopic who presented to [facility] ED with complaint of acute abdominal pain. Patient reports she was picked up at restaurant having abdominal pain cramping sensation in nature greater in the upper abdominal region, rating 9/10 numeric scale, getting worse that prompted this visit. Patient states that she just ended her menstruation cycle yesterday. Abdomen/pelvis CT shows no evidence of acute abdominal/pelvis abnormality. Patient Past Medical History Past Medical History Ectopic Past Surgical History Past Surgical History Left salpingectomy/oophorectomy Family History: Hypertension G8 FATHER Allergies: Coded Allergies: NO KNOWN ALLERGIES (Unverified , 07/30/21) Home Meds Reported Medications Lorazepam (ATIVAN TABLET) 0.5 Mg Tb, 1 TAB PO TID, #90 TAB 10/13/24 Diphenhydramine Hcl (Benadryl Allergy) 25 Mg Cap, 1 CAP PO QPM, #30 CAP 1 Refill 10/13/24 Current Medications Current Medications Medications (Trade) Dose Ordered Sig/Ana Luisa Route PRN Reason Start Time Stop Time Status Last Admin Dextrose/Sodium Chloride 1,000 ml @ 100 mls/hr Q10H IV 10/12/24 23:30 10/13/24 09:30 Vital Signs Vital Signs Date Time Temp Pulse Resp B/P (MAP) Pulse Ox O2 Delivery O2 Flow Rate FiO2 10/13/24 21:00 97.9 63 17 103/55 (71) 97 97.9 10/13/24 08:00 Room Air* 0 21 Physical Exam General Appearance: Alert, Oriented X3, Cooperative, No acute distress HEENT: Atraumatic, PERRLA, EOMI, Mucous membr. moist/pink Respiratory: Clear to auscultation, Normal air movement Cardiovascular: Regular rate, Normal S1, Normal S2, No murmurs Abdominal: Normal bowel sounds, Soft, No hepatospenomegaly, No masses, Other (Reports tenderness) Extremities: No clubbing, No cyanosis, No edema, Normal pulses, No tenderness/swelling Skin: No rashes, No breakdown, No significant lesion Neuro: Normal gait, Normal speech, Strength at 5/5 X4 ext, Normal tone, Sensation intact, Cranial nerves 3-12 NL, Reflexes 2+ Psych/Mental Status: Mental status NL, Mood NL Labs/Diagnostic Data Labs Test 10/13/24 04:30 10/12/24 23:10 10/12/24 23:00 10/12/24 15:41 Range/Units White Blood Count 4.9 4.4-10.8 10^3/uL Red Blood Count 3.97 L 4.0-5.20 10^6/uL Hemoglobin 11.8 L 12.2-16.2 g/dL Hematocrit 34.8 L 36.0-46.0 % Mean Corpuscular Volume 87.6 80.0-100.0 fL Mean Corpuscular Hemoglobin 29.7 28.0-32.0 pg Mean Corpuscular Hemoglobin Concent 33.9 32.0-36.0 g/dL Red Cell Distribution Width 13.7 11.8-14.3 % Platelet Count 249 140-450 10^3/uL Mean Platelet Volume 7.5 6.9-10.8 fL Neutrophils (%) (Auto) 60.5 37.0-80.0 % Lymphocytes (%) (Auto) 28.8 10.0-50.0 % Monocytes (%) (Auto) 9.7 0.0-12.0 % Eosinophils (%) (Auto) 0.7 0.0-7.0 % Basophils (%) (Auto) 0.3 0.0-2.0 % Neutrophils # (Auto) 3.0 1.6-8.6 10 ^3/uL Lymphocytes # (Auto) 1.4 0.4-5.4 10 ^3/uL Monocytes # (Auto) 0.5 0-1.3 10 ^3/uL Eosinophils # (Auto) 0 0-0.8 10 ^3/uL Basophils # (Auto) 0 0-0.2 10 ^3/uL Nucleated Red Blood Cells 0.1 % Sodium Level 140 136-145 mmol/L Potassium Level 3.6 3.5-5.1 mmol/L Chloride Level 107 98-107 mmol/L Carbon Dioxide Level 28 20-31 mmol/L Anion Gap 5 5-15 Blood Urea Nitrogen 6 L 9-23 mg/dL Creatinine 0.86 0.550-1.02 mg/dL Glomerular Filtration Rate Calc 88 >90 mL/min BUN/Creatinine Ratio 7.0 L 10.0-20.0 Serum Glucose 99 74-106 mg/dL Calcium Level 8.9 8.7-10.4 mg/dL Total Bilirubin 0.6 0.2-1.0 mg/dL Aspartate Amino Transferase (AST) 214 H 13-40 U/L Alanine Aminotransferase (ALT) 121 H 7-40 U/L Alkaline Phosphatase 71 46-116 U/L Total Protein 6.0 5.7-8.2 g/dL Albumin 3.4 3.2-4.8 g/dL POC Glucose 96 70-106 mg/dl Urine Color Light-yellow Yellow Urine Clarity Turbid H Clear Urine pH 6.0 5.0-9.0 Urine Specific [place] 1.015 1.001-1.035 Urine Protein Negative Negative Urine Ketones Negative Negative Urine Blood Negative Negative /uL Urine Nitrite Negative Negative Urine Bilirubin Negative Negative Urine Urobilinogen Normal Negative mg/dL Urine Leukocyte Esterase Negative Negative /uL Urine RBC 1 0 - 4 /hpf Urine WBC 3 0 - 5 /hpf Urine Squamous Epithelial Cells Few <5 /hpf Urine Bacteria Few H None Seen /hpf Urine Mucus Few None Seen Urine Glucose Normal Normal mg/dL Lipase 158 H 12-53 U/L Beta HCG, Quantitative 1.7 1.5-4.2 mIU/mL Pelvic USG IMPRESSION: 1. Uterus is unremarkable. 2. Small follicle right ovary. 3. Left ovary not visualized Problems(with codes): (1) Elevated liver enzymes (2) Acute pancreatitis without necrosis or infection, unspecified (3) Acute abdominal pain Plan/Recommendation Assessment plan Patient has mild elevation in lipase followed by increase liver enzymes or transaminitis suggestive of possible biliary colic or gallbladder issues Check right upper quadrant ultrasound in rule out cholelithiasis Monitor repeat labs in a.m. Patient is on clear liquid diet and IV fluid hydration Pain control as needed Plan discussed with: Other (Nurse) ROSINA SCHRADER MD Oct 13, 2024 22:11
[2024-10-14 05:00] VITALS: BP 91/40; PULSE 70; RESP 20; TEMP 98; O2SAT 97
[2024-10-14 07:12] LABS: Albumin 3.3 g/dL (3.2-4.8); Alkaline Phosphatase 96 U/L (46-116); Anion Gap 5 (5-15); Bilirubin, Total 0.6 mg/dL (0.2-1.0); Calcium 8.8 mg/dL (8.7-10.4); Carbon Dioxide 28 mmol/L (20-31); Glucose 94 mg/dL (74-106); Sodium 141 mmol/L (136-145)
[2024-10-14 07:13] LABS: Basophils # (auto) 0 10 ^3/uL (0-0.2); Basophils % (auto) 0.5 % (0.0-2.0); Eosinophils # (auto) 0 10 ^3/uL (0-0.8); Eosinophils % (auto) 1.5 % (0.0-7.0); Hematocrit 32.2 % (36.0-46.0); Lymphocytes # (auto) 1.3 10 ^3/uL (0.4-5.4); Lymphocytes % (auto) 41.9 % (10.0-50.0); Mean Corpuscular Hemoglobin 29.9 pg (28.0-32.0); Mean Corpuscular Hgb Conc. 34.1 g/dL (32.0-36.0); Mean Corpuscular Volume 87.6 fL (80.0-100.0); Monocytes # (auto) 0.4 10 ^3/uL (0-1.3); Monocytes % (auto) 11.9 % (0.0-12.0); Neutrophils # (auto) 1.4 10 ^3/uL (1.6-8.6); Neutrophils % (auto) 44.2 % (37.0-80.0); Platelet Count (auto) 225 10^3/uL (140-450); Red Blood Cells 3.68 10^6/uL (4.0-5.20); Red Cell Distribution Width 13.8 % (11.8-14.3); Total Protein 5.9 g/dL (5.7-8.2); White Blood Cell 3.2 10^3/uL (4.4-10.8)
[2024-10-14 07:26] LABS: Alanine Aminotransferase 144 U/L (7-40); Aspartate Aminotransferase 133 U/L (13-40); Blood Urea Nitrogen < 5 mg/dL (9-23); Chloride 108 mmol/L (98-107); Potassium 3.5 mmol/L (3.5-5.1)
[2024-10-14 07:36] LABS: Lipase 38 U/L (12-53)
--- NOTE | 2024-10-14 08:19 | DVH ---
INDICATION: elevated lipase and liver tests TECHNIQUE: Multiple real-time sonographic images were obtained of the right upper quadrant. COMPARISON: None FINDINGS: The liver demonstrates homogenous echotexture without focal mass lesions. The liver measure s 14 cm. There is no intrahepatic or extrahepatic ductal dilatation. The common duct measures 6 mm . The gallbladder is without evidence of stone or sludge. The gallbladder wall measures 2 mm and is w ithin normal limits. The right kidney measures 9.0 cm. The right kidney is normal in contour, size, and shape. The echo genicity is normal. There is no hydronephrosis. The pancreas is not well visualized due to overlying bowel gas. IMPRESSION: No sonographic evidence of gallstones or acute cholecystitis.
[2024-10-14 09:00] VITALS: BP 118/61; PULSE 69; RESP 17; TEMP 98.6; O2SAT 99
--- NOTE | 2024-10-14 11:31 | DVHPN2 ---
Subjective The patient is seen and examined at bedside. The patient tolerate clear liquid diet for breakfast. Reviewed: Care Plan, H&P, Labs, Medications, Previous Orders, Radiology Changes from previous H/P or p: No Changes Eyes: No Pain, No Vision change, No Conjunctivae inflammation, No Eyelid inflammation, No Other, No Redness ENT: No Ear pain, No Ear discharge, No Nose pain, No Nose discharge, No Nose congestion, No Mouth pain, No Mouth swelling, No Throat pain, No Throat swelling, No Other Cardiovascular: No Chest Pain, No Palpitations, No Orthopnea, No Paroxysmal Noc. Dyspnea, No Edema, No Lt Headedness, No Other Respiratory: No Cough, No Dry, No Shortness of breath, No SOB with excertion, No Wheezing, No Hemoptysis, No Pleuritic Pain, No Sputum, No Other Gastrointestinal: Abdominal Pain Genitourinary: No Dysuria, No Frequency, No Incontinence, No Hematuria, No Retention, No Other Musculoskeletal: No other, No neck pain, No shoulder pain, No arm pain, No back pain, No hand pain, No leg pain, No foot pain Skin: No Rash, No Lesions, No Jaundice, No Bruising, No Other Objective Vitals Vital Signs Date Time Temp Pulse Resp B/P (MAP) Pulse Ox O2 Delivery O2 Flow Rate FiO2 10/14/24 09:00 98.6 69 17 118/61 (80) 99 98.6 10/14/24 08:15 Room Air* 0 21 Intake/Output Intake and Output 10/14/24 07:00 Intake Total 800 ml Balance 800 ml Intake Oral 800 ml # Voids 4 General Appearance: Alert, Oriented X3, Cooperative, No acute distress HEENT: Atraumatic, PERRLA, EOMI, Mucous membr. moist/pink Neck: Supple Lungs: Clear to auscultation, Normal air movement Cardiovascular: Regular rate, Normal S1, Normal S2, No murmurs, Gallops, Rubs Abdomen: Normal bowel sounds, Soft, No tenderness Neuro: Cranial nerves 3-12 NL Psych/Mental Status: Mental status NL Medications Current Medications Medications Dose Ordered Sig/Ana Luisa Route Start Time Stop Time Status Last Admin Dose Admin Acetaminophen/ Hydrocodone Bitart 1 tab Q4HP PRN PO 10/12/24 19:30 10/14/24 06:34 1 TAB Ondansetron HCl 4 mg Q4HP PRN IV 10/12/24 19:30 Docusate Sodium 100 mg BIDPRN PRN PO 10/12/24 19:30 Acetaminophen 650 mg Q6HP PRN PO 10/12/24 19:30 Morphine Sulfate 2 mg Q4HPRN PRN IV 10/12/24 19:30 10/13/24 23:09 2 MG Nitroglycerin 0.4 mg Q5MINP PRN SL 10/12/24 21:45 Morphine Sulfate 2 mg Q30M PRN IV 10/12/24 21:45 Dextrose/Sodium Chloride 1,000 ml @ 100 mls/hr Q10H IV 10/12/24 23:30 10/14/24 06:26 100 MLS/HR Laboratory Results Laboratory Tests 10/14/24 06:30 Chemistry Test 10/14/24 06:30 Albumin 3.3 g/dL (3.2-4.8) Calcium Level 8.8 mg/dL (8.7-10.4) Total Protein 5.9 g/dL (5.7-8.2) Lipid panel Test 10/14/24 06:30 Lipase 38 U/L (12-53) LFT Test 10/14/24 06:30 Alanine Aminotransferase (ALT) 144 U/L (7-40) H Alkaline Phosphatase 96 U/L (46-116) Aspartate Amino Transferase (AST) 133 U/L (13-40) H Total Bilirubin 0.6 mg/dL (0.2-1.0) Urinalysis Test 10/12/24 23:00 Urine Color Light-yellow (Yellow) Urine Clarity Turbid (Clear) H Urine pH 6.0 (5.0-9.0) Urine Specific [place] 1.015 (1.001-1.035) Urine Protein Negative (Negative) Urine Ketones Negative (Negative) Urine Blood Negative /uL (Negative) Urine Nitrite Negative (Negative) Urine Bilirubin Negative (Negative) Urine Urobilinogen Normal mg/dL (Negative) Urine Leukocyte Esterase Negative /uL (Negative) Urine RBC 1 /hpf (0 - 4) Urine WBC 3 /hpf (0 - 5) Urine Squamous Epithelial Cells Few /hpf (<5) Urine Bacteria Few /hpf (None Seen) H Urine Mucus Few (None Seen) Urine Glucose Normal mg/dL (Normal) Labs and/or images reviewed: Labs reviewed by me Assessment/Plan Assessment/Plan Acute pancreatitis Intractable nausea or vomiting Alcohol abuse. Plan: Continuing current management. Continuing with IV fluid. Continuing with IV pain medication and [place] for pain control. The patient tolerate clear liquid diet. So I will advance diet to full liquid. Advice to stop drinking and join local alcohol anonymous. Need outpatient GI follow up . Patient was start on protonix and carafate per GI recommendation. Plan discussed with: Patient Date of Service: Oct 14, 2024 Billing Provider: VIJI GOSS MD Common Visit Codes: [id number] INP/OBS CARE(HIGH) VIJI GOSS MD Oct 14, 2024 11:31
[2024-10-14 13:00] VITALS: BP 133/61; PULSE 63; RESP 17; TEMP 98.5; O2SAT 98
[2024-10-14] MEDS: DOCUSATE SOD 100 MG CAP PO PRN (15:47)
[2024-10-14 17:00] VITALS: BP 107/61; PULSE 52; RESP 17; TEMP 97.9; O2SAT 93
--- NOTE | 2024-10-14 19:30 | DVHPN2 ---
Progress Note - Dictate Date Seen: Oct 14, 2024 Medical Necessity Reason Pt with a Central, PICC or Fol: No Subjective No new complaints Patient is still feels nauseous and was not tolerating clear liquids earlier but now her diet has been advanced to regular Her right upper quadrant ultrasound is normal without any gallstones Her lipase has normalized Liver enzymes are trending down vital signs Vital Sign Date Time Temp Pulse Resp B/P (MAP) Pulse Ox O2 Delivery O2 Flow Rate FiO2 10/14/24 17:00 97.9 52 17 107/61 (76) 93 97.9 10/14/24 08:15 Room Air* 0 21 Total Intake and Output 10/13/24 10/13/24 10/14/24 15:00 23:00 07:00 Intake Total 800 ml Balance 800 ml medications Current Medications Medications Dose Ordered Sig/Ana Luisa Route Start Time Stop Time Status Last Admin Dose Admin Acetaminophen/ Hydrocodone Bitart 1 tab Q4HP PRN PO 10/12/24 19:30 10/14/24 12:12 1 TAB Ondansetron HCl 4 mg Q4HP PRN IV 10/12/24 19:30 Docusate Sodium 100 mg BIDPRN PRN PO 10/12/24 19:30 10/14/24 15:47 100 MG Acetaminophen 650 mg Q6HP PRN PO 10/12/24 19:30 Morphine Sulfate 2 mg Q4HPRN PRN IV 10/12/24 19:30 10/13/24 23:09 2 MG Nitroglycerin 0.4 mg Q5MINP PRN SL 10/12/24 21:45 Morphine Sulfate 2 mg Q30M PRN IV 10/12/24 21:45 Dextrose/Sodium Chloride 1,000 ml @ 100 mls/hr Q10H IV 10/12/24 23:30 10/14/24 12:12 100 MLS/HR objective General Appearance: Alert, Oriented X3, Cooperative, No acute distress HEENT: Atraumatic, PERRLA, EOMI, Mucous membr. moist/pink Neck: Supple Lungs: Clear to auscultation, Normal air movement Cardiovascular: Regular rate, Normal S1, Normal S2, No murmurs, Gallops, Rubs Abdomen: Normal bowel sounds, Soft, No tenderness Neuro: Cranial nerves 3-12 NL Psych/Mental Status: Mental status NL laboratory and microbiology Laboratory Tests 10/14/24 06:30 Test 10/14/24 06:30 Range/Units Serum Glucose 94 74-106 mg/dL Problems(with codes): (1) Elevated liver enzymes (2) Acute pancreatitis without necrosis or infection, unspecified (3) Acute abdominal pain (4) History of anxiety Prognosis Plan Add Protonix 40 mg IV q.12 hours Carafate 1 g p.o. twice a day for mild gastritis Advance diet as tolerated Discontinue alcohol or any substance abuse Outpatient follow up with GI Services to discuss elective panendoscopy Once again thank you for allowing me to participate in the care of this patient Dietary Evaluation Review Comments: 1) Advance patient diet when medically feasible to full liquid diet and then ultimately, cardiac diet 2) Continue current plan of care Expected Outcomes/Goals: Patient labs and appetite to improve Plan discussed with: Other (None) ROSINA SCHRADER MD Oct 14, 2024 19:30
[2024-10-14 21:00] VITALS: BP 149/72; PULSE 86; RESP 17; TEMP 98; O2SAT 99
[2024-10-14] MEDS: PANTOPRAZOLE 40 MG/10 ML VIAL INJ IV SCH (21:53)
[2024-10-14] MEDS: SUCRALFATE 1 GM/10 ML ORAL SUSP PO SCH (21:53)
[2024-10-15 00:55] VITALS: BP 111/54; PULSE 74; RESP 16; TEMP 98; O2SAT 100
[2024-10-15 09:00] VITALS: BP 133/73; PULSE 63; RESP 20; TEMP 97.8; TEMP 99; O2SAT 99
[2024-10-15] MEDS ORDERED: HYDR-4902 PO (11:11)
[2024-10-15] MEDS ORDERED: PANT40TA2 PO (11:11)
[2024-10-15] MEDS ORDERED: SUCR1TAB31 PO (11:11)
--- NOTE | 2024-10-15 11:13 | DVHDS2 ---
Discharge Summary Date of Admission Oct 12, 2024 at 21:44 Date of Discharge: Oct 15, 2024 Admitting Diagnosis Acute pancreatitis Intractable nausea or vomiting Alcohol abuse. Labs/Diagnostic Data: Laboratory Results Test 10/14/24 06:30 10/12/24 23:10 10/12/24 23:00 10/12/24 15:41 White Blood Count 3.2 10^3/uL (4.4-10.8) Red Blood Count 3.68 10^6/uL (4.0-5.20) Hemoglobin 11.0 g/dL (12.2-16.2) Hematocrit 32.2 % (36.0-46.0) Mean Corpuscular Volume 87.6 fL (80.0-100.0) Mean Corpuscular Hemoglobin 29.9 pg (28.0-32.0) Mean Corpuscular Hemoglobin Concent 34.1 g/dL (32.0-36.0) Red Cell Distribution Width 13.8 % (11.8-14.3) Platelet Count 225 10^3/uL (140-450) Mean Platelet Volume 7.7 fL (6.9-10.8) Neutrophils (%) (Auto) 44.2 % (37.0-80.0) Lymphocytes (%) (Auto) 41.9 % (10.0-50.0) Monocytes (%) (Auto) 11.9 % (0.0-12.0) Eosinophils (%) (Auto) 1.5 % (0.0-7.0) Basophils (%) (Auto) 0.5 % (0.0-2.0) Neutrophils # (Auto) 1.4 10 ^3/uL (1.6-8.6) Lymphocytes # (Auto) 1.3 10 ^3/uL (0.4-5.4) Monocytes # (Auto) 0.4 10 ^3/uL (0-1.3) Eosinophils # (Auto) 0 10 ^3/uL (0-0.8) Basophils # (Auto) 0 10 ^3/uL (0-0.2) Nucleated Red Blood Cells 0.0 % Sodium Level 141 mmol/L (136-145) Potassium Level 3.5 mmol/L (3.5-5.1) Chloride Level 108 mmol/L (98-107) Carbon Dioxide Level 28 mmol/L (20-31) Anion Gap 5 (5-15) Blood Urea Nitrogen < 5 mg/dL (9-23) Creatinine 0.84 mg/dL (0.550-1.02) Glomerular Filtration Rate Calc 91 mL/min (>90) BUN/Creatinine Ratio 6.0 (10.0-20.0) Serum Glucose 94 mg/dL (74-106) Calcium Level 8.8 mg/dL (8.7-10.4) Total Bilirubin 0.6 mg/dL (0.2-1.0) Aspartate Amino Transferase (AST) 133 U/L (13-40) Alanine Aminotransferase (ALT) 144 U/L (7-40) Alkaline Phosphatase 96 U/L (46-116) Total Protein 5.9 g/dL (5.7-8.2) Albumin 3.3 g/dL (3.2-4.8) Lipase 38 U/L (12-53) POC Glucose 96 mg/dl (70-106) Urine Color Light-yellow (Yellow) Urine Clarity Turbid (Clear) Urine pH 6.0 (5.0-9.0) Urine Specific [place] 1.015 (1.001-1.035) Urine Protein Negative (Negative) Urine Ketones Negative (Negative) Urine Blood Negative /uL (Negative) Urine Nitrite Negative (Negative) Urine Bilirubin Negative (Negative) Urine Urobilinogen Normal mg/dL (Negative) Urine Leukocyte Esterase Negative /uL (Negative) Urine RBC 1 /hpf (0 - 4) Urine WBC 3 /hpf (0 - 5) Urine Squamous Epithelial Cells Few /hpf (<5) Urine Bacteria Few /hpf (None Seen) Urine Mucus Few (None Seen) Urine Glucose Normal mg/dL (Normal) Beta HCG, Quantitative 1.7 mIU/mL (1.5-4.2) Other Laboratory Tests 10/14/24 06:30 Brief Hx & Hospital Course: This is a 39 years old female with past medical history of atopic come to [facility] with chief complaint of abdominal pain. Patient was picked up by EMS at the restaurant because of her severe abdominal pain with cramping sensation. Patient was admitted. CT abdomen pelvis showed no acute abnormality. The patient lipase elevated 138. The patient liver function tests elevated. The patient right upper quadrant abdomen ultrasound showed no gallstone. The patient was keep NPO, she was given IV fluid, and pain medication with morphine. The patient was started on clear liquid diet but the 1st day unable to tolerate in subsequently able to tolerate and advance to regular diet. The patient admits she does drink alcohol but stated that she only drinks 1 times prior to this happened, she also said she only drinks socially. She stated that she will stay out of alcohol for now. Today she able to tolerate food she not nausea or vomiting. Abdominal pain improved. I am going to discharge her home. Advised her to follow up with primary care physician 1-2 weeks. GI specialist has see the patient and recommend Protonix and Carafate. So I am going to discharge her with these new medications. Activity as tolerated. Diet per home diet. Stay away from alcohol. Also recommend low-fat diet. Physical exam: HEENT: Normocephalic atraumatic pupils equal react to light and accommodation. Extraocular muscles intact, conjunctiva pink, oropharynx moist, no thrush, no exudate. Lymphatic: No lymphadenopathy Cardiovascular exam: S1, S2 was heard. No murmurs, rubs, gallops Lung: Clear on auscultation bilaterally, no wheeze, rale, rhonchi. GI: Abdominal soft, nondistended, nontenderness, positive bowel sounds. Extremity: No crepitus, cyanosis, edema. Pedal pulses present bilateral. Full range of motion. Skin: Normal turgor, no rash. Psych: Alert, oriented x3. Neurology: No focal deficits, cranial nerve II to XII grossly intact. This medical document was created using an electronic medical record system with [employer] direct computerized dictation system. Although this document has been carefully reviewed, there may still be some phonetic and typographical errors. These areas are purely typographical due to imperfections of the software programs, and do not reflect any compromise in the patient's medical care. Condition at Discharge: Stable Final Diagnosis/Problems List acute pancreatitis Intractable nausea and vomiting Alcohol abuse Discharge Disposition: Home Discharge Instruct/Medications Diet: Regular Activity: No Restrictions, As Tolerated Follow Up/Referral: pcp 1-2 weeks Medications: Resume home meds Protonix 40mg daily carafate 1gm bid Discharge Statement: "Patient was advised to return to the ER or call 911 if any headaches, dizziness, shortness of breath, chest pain, abdominal pain, bleeding, fevers, or worsening of medical condition. Patient was counseled about treatment plan, medications, possible side effects, patientverbalized understanding. All questions were answered to the best of my ability. This discharge took greater then 30 minutes in planning, reviewing documentation, counseling the patient, and discussing with other team members." ASSESSMENT ASSESSMENT Assessment acute pancreatitis Date of Service: Oct 15, 2024 Billing Provider: VIJI GOSS MD Common Visit Codes: 41839-PKN/OBS DISCH DAY >30min VIJI GOSS MD Oct 15, 2024 11:13
[2024-10-15] MEDS: LACTULOSE 20Gm/30ML SOLN PO ONE (12:30)
[2024-10-15 13:00] VITALS: BP 135/56; PULSE 65; RESP 20; TEMP 98.1; O2SAT 100
[2024-10-15] MEDS: FLEET ENEMA(ADULT) 135 ML PR ONE (14:00)
[2024-10-15 17:03] VITALS: BP 120/58; PULSE 62; RESP 18; TEMP 98.1; O2SAT 95
--- NOTE | 2024-10-15 18:40 | DVHPN2 ---
Progress Note - Dictate Date Seen: Oct 15, 2024 Medical Necessity Reason Pt with a Central, PICC or Fol: No Subjective No new complaints Patient is ambulatory She had a bowel movement; tolerating regular diet There is no nausea vomiting or abdominal pain today Her laboratory findings and ultrasound were reviewed with the patient Her right upper quadrant ultrasound is normal without any gallstones Her lipase has normalized Liver enzymes are trending down vital signs Vital Sign Date Time Temp Pulse Resp B/P (MAP) Pulse Ox O2 Delivery O2 Flow Rate FiO2 10/15/24 17:03 98.1 62 18 120/58 (78) 95 98.1 10/15/24 08:30 Room Air* 0 21 Total Intake and Output 10/14/24 10/14/24 10/15/24 15:00 23:00 07:00 Intake Total 1000 ml 2000 ml 1000 ml Output Total 2 ml Balance 1000 ml 2000 ml 998 ml medications Current Medications Medications Dose Ordered Sig/Ana Luisa Route Start Time Stop Time Status Last Admin Dose Admin Acetaminophen/ Hydrocodone Bitart 1 tab Q4HP PRN PO 10/12/24 19:30 10/14/24 20:33 1 TAB Ondansetron HCl 4 mg Q4HP PRN IV 10/12/24 19:30 Docusate Sodium 100 mg BIDPRN PRN PO 10/12/24 19:30 10/15/24 10:41 100 MG Acetaminophen 650 mg Q6HP PRN PO 10/12/24 19:30 Morphine Sulfate 2 mg Q4HPRN PRN IV 10/12/24 19:30 10/15/24 10:45 2 MG Nitroglycerin 0.4 mg Q5MINP PRN SL 10/12/24 21:45 Morphine Sulfate 2 mg Q30M PRN IV 10/12/24 21:45 Dextrose/Sodium Chloride 1,000 ml @ 100 mls/hr Q10H IV 10/12/24 23:30 10/15/24 10:30 100 MLS/HR Pantoprazole Sodium 40 mg BID IV 10/14/24 22:00 10/15/24 10:29 40 MG Sucralfate 1 gm BID@0600,2200 PO 10/14/24 22:00 10/15/24 05:26 1 GM objective General Appearance: Alert, Oriented X3, Cooperative, No acute distress HEENT: Atraumatic, PERRLA, EOMI, Mucous membr. moist/pink Neck: Supple Lungs: Clear to auscultation, Normal air movement Cardiovascular: Regular rate, Normal S1, Normal S2, No murmurs, Gallops, Rubs Abdomen: Normal bowel sounds, Soft, No tenderness Neuro: Cranial nerves 3-12 NL Psych/Mental Status: Mental status NL laboratory and microbiology Laboratory Tests 10/14/24 06:30 Test 10/14/24 06:30 Range/Units Serum Glucose 94 74-106 mg/dL Problems(with codes): (1) History of anxiety (2) Elevated liver enzymes (3) Acute pancreatitis without necrosis or infection, unspecified (4) Acute abdominal pain Prognosis Plan Patient was counseled about discontinuing alcohol which she only drinks socially Low-fat diet Outpatient follow up with me as needed Discharge planning is in progress Dietary Evaluation Review Comments: 1) Advance patient diet when medically feasible to full liquid diet and then ultimately, cardiac diet 2) Continue current plan of care Expected Outcomes/Goals: Patient labs and appetite to improve Plan discussed with: Patient ROSINA SCHRADER MD Oct 15, 2024 18:40
== END 2024-10-15 18:30 | disposition home or self-care (01) | DRG 282 ==
LOC: EDBD 14:49 → ER 14:49 → OVERFLOW 21:44 → WEST WING 23:47
PROVIDERS: ADMIT Nurse Practitioner Family; ATTEND Internal Medicine
DX: K85.90 Acute pancreatitis without necrosis or infection, unspecified (principal); F10.10 Alcohol abuse, uncomplicated; Y90.9 Presence of alcohol in blood, level not specified; Z87.59 Personal history of other complications of pregnancy, childbirth and the puerperium; Z82.49 Family history of ischemic heart disease and other diseases of the circulatory system
CPT/HCPCS: 36415; 74176; 76705; 76830; 76856; 80053; 81001; 82962; 83690; 84702; 85025; G0378; J2405; J2470